=== PATIENT | female | born 1990 | race Caucasian/White ===

== ENCOUNTER 2018-10-13 20:30 | Emergency (ER) | payer OTHER ==
[~2018-10-13] VITALS: Ht 165.1 cm; Wt 74.8 kg
[2018-10-13 20:57] VITALS: BP 131/79
--- NOTE | 2018-10-13 21:00 | NUR ---
TO LOBBY A/W BED, KOL[facility] TOMPKINS NOTED
--- NOTE | 2018-10-13 22:10 | NUR ---
Ze orourke in [facility] - 10/13/18 at 2212 by TUNG PT TAKEN TO BED 3
--- NOTE | 2018-10-13 22:35 | NUR ---
CAME IN WITH C/O REDNESS, SWELLING AND PAIN TO PUBIC AREA X 4 DAYS S/P SHAVING. PUBIC AREA NOTED WITH REDNESS, SMALL ABRASION, NO DISCHARGE NOTED. PT DENIES FEVER/CHILL, N/V. DENIES PMH
--- NOTE | 2018-10-13 22:35 | NUR ---
PT AMBULATED TO BED 12
--- NOTE | 2018-10-13 22:59 | NUR ---
FEMALE DRY MAN FOR PELVIC EXAM
[2018-10-13] MEDS ORDERED: SULFAMETH/TRIMETH DS 800/160MG 1 TAB PO ONE (23:00)
[2018-10-13] MEDS ORDERED: KETOROLAC 60 MG/2 ML VIAL IM ONE (23:00)
--- NOTE | 2018-10-13 23:30 | NUR ---
Patient discharged with v/s stable. Written and verbal after care instructions given and explained. Patient alert, oriented and verbalized understanding of instructions. Ambulatory with steady gait. All questions addressed prior to discharge. ID band removed. Patient advised to follow up with PMD. Rx of MOTRIN, BACTRIM DS given. Patient educated on indication of medication including possible reaction and side effects. Opportunity to ask questions provided and answered.
[2018-10-13 23:32] VITALS: BP 130/78
== END 2018-10-13 23:30 | disposition home or self-care (01) ==
LOC: MED 20:30
DX: L03.314 Cellulitis of groin (principal)
CPT/HCPCS: 96372; 99283; J1885

== ENCOUNTER 2018-12-31 22:32 | Emergency (ER) | payer OTHER ==
[~2018-12-31] VITALS: Ht 165.1 cm; Wt 70.3 kg
--- NOTE | 2018-12-31 22:39 | NUR ---
PT TAKEN TO BED 4
[2018-12-31 22:42] VITALS: BP 130/70
--- NOTE | 2018-12-31 23:05 | NUR ---
28 YO F BIB SELF PRESENTS TO ED C/O UTI S/SX X 1 DAY. PT REPORTS SUPRAPUBIC TENDERNESS AND A FEELING OF PRESSURE IN HER BLADDER, 10/10 URINARY BURNING, FREQUENCY, AND URGENCY. PT STATES SHE HAS HAD A UTI BEFORE WITH SIMILAR S/SX. DENIES FEVER. HAS SOME NAUSEA, NO VOMITING. -- PT AWAKE, ALERT, CALM, COOPERATIVE. APPEARS UNCOMFORTABLE. -- SKIN PINK, WARM, DRY. BREATHING EVEN, UNLABORED. -- EMT DIPPING URINE SPECIMEN AT THIS TIME. PMH-- DENIES RX-- DENIES
[2018-12-31] MEDS ORDERED: KETOROLAC 30 MG/ML VIAL IM ONE (23:15)
[2018-12-31 23:32] VITALS: BP 137/67
--- NOTE | 2018-12-31 23:32 | NUR ---
Patient discharged with v/s stable. Written and verbal after care instructions given and explained. Patient alert, oriented and verbalized understanding of instructions. Ambulatory with steady gait. All questions addressed prior to discharge. ID band removed. Patient advised to follow up with PMD. Rx of Keflex, Naprosyn, Tylenol with Codeine given. Patient educated on indication of medication including possible reaction and side effects. Opportunity to ask questions provided and answered.
== END 2018-12-31 23:32 | disposition home or self-care (01) ==
LOC: MED 22:32
DX: N39.0 Urinary tract infection, site not specified (principal); Z91.018 Allergy to other foods; Z88.8 Allergy status to other drugs, medicaments and biological substances
CPT/HCPCS: 81002; 81025; 96372; 99283; J1885